=== PATIENT | female | born 1995 | race Two or more races ===

== ENCOUNTER 2016-09-12 14:52 | Emergency (ER) | payer SELFPAY ==
[2016-09-12 15:28] LABS: HCG URINE NEGATIVE (NEGATIVE)
[2016-09-12 15:39] LABS: APPEARANCE CLEAR (CLEAR); BILIRUBIN NEGATIVE (NEGATIVE); COLOR YELLOW (YELLOW); GLUCOSE NEGATIVE (NEGATIVE); KETONE NEGATIVE (NEGATIVE); LEUKOCYTE ESTERASE TRACE (NEGATIVE); NITRITE NEGATIVE (NEGATIVE); PROTEIN NEGATIVE (NEGATIVE); SPECIFIC GRAVITY 1.015 (1.005-1.020); UROBILINOGEN NORMAL (NORMAL)
[2016-09-12 15:40] LABS: BACTERIA FEW /hpf (NONE SEEN); EPITHELIAL CELLS 0-5 /hpf (0-5); RED CELLS - URINE 0-5 /hpf (0-5); WHITE CELLS - URINE 0-5 /hpf (0-5)
[2016-09-12 15:48] LABS: BASOPHILS 0.2 % (0.0-2.0); EOSINOPHILS 1.2 % (0-7); HEMATOCRIT 43.9 % (36.0-48.0); HEMOGLOBIN 14.3 g/dL (12-16); LYMPHOCYTES 32.4 % (15-50); MCH 29.1 pg (26.0-34.0); MCHC 32.6 g/dL (31.0-37.0); MCV 89.4 fL (80.0-100.0); MEAN PLATELET VOLUME 10.2 fL (7.4-10.4); MONOCYTES 12.6 % (2-11); NEUTROPHILS 53.6 % (40-80); PLATELET COUNT 233 10x3/uL (130-400); RBC 4.91 10x6/uL (4.00-5.40); RDW 13.2 % (11.5-14.5); WBC 8.1 10x3/uL (4.8-10.8)
[2016-09-12 16:03] LABS: ALBUMIN 3.9 g/dL (3.4-5.0); ALKALINE PHOSPHATASE 99 U/L (46-116); ALT (SGPT) 36 U/L (10-68); AMYLASE - SERUM 93 U/L (25-115); BILIRUBIN - TOTAL 0.26 mg/dL (0.2-1.3); CALC OSMOLALITY 277 mosm/kg (275-300); CALCIUM 8.9 mg/dL (8.5-10.1); CARBON DIOXIDE 27.9 mmol/L (21.0-32.0); CHLORIDE - SERUM 104 mmol/L (98-107); CREATININE - SERUM 0.8 mg/dL (0.6-1.3); GLUCOSE 93 mg/dL (74-106); LIPASE 86 U/L (73-393); POTASSIUM - SERUM 3.3 mmol/L (3.5-5.1); PROTEIN - SERUM 7.8 g/dL (6.4-8.2); SODIUM 141 mmol/L (136-145); UREA NITROGEN 5 mg/dL (7-18); eGFR NON AFRICAN AMERICAN > 90 mL/min (90-120)
== END 2016-09-12 16:25 | disposition home or self-care (01) ==
LOC: D.ER 14:52
PROVIDERS: Emergency Medicine
DX: N73.0 Acute parametritis and pelvic cellulitis (principal); F17.200 Nicotine dependence, unspecified, uncomplicated

== ENCOUNTER 2018-12-22 07:59 | Emergency (ER) | payer BC, MEDICAID ==
[~2018-12-22] VITALS: Ht 162.6 cm; Wt 71.8 kg
[2018-12-22 08:21] VITALS: Ht 162.6 cm; Wt 71.8 kg
[2018-12-22] MEDS ORDERED: MINIPRESS1 MG PO (08:25)
[2018-12-22 08:52] LABS: APPEARANCE CLEAR (CLEAR); BILIRUBIN NEGATIVE (NEGATIVE); COLOR YELLOW (YELLOW); GLUCOSE NEGATIVE (NEGATIVE); KETONE NEGATIVE (NEGATIVE); NITRITE NEGATIVE (NEGATIVE); PROTEIN NEGATIVE (NEGATIVE); SPECIFIC GRAVITY 1.005 (1.005-1.020); UROBILINOGEN NORMAL (NORMAL)
[2018-12-22 08:54] LABS: HCG URINE NEGATIVE (NEGATIVE)
[2018-12-22 09:04] LABS: BASOPHILS 0.1 % (0-2); EOSINOPHILS 2.6 % (0-7); HEMATOCRIT 40.9 % (36.0-48.0); HEMOGLOBIN 13.3 g/dL (12-16); IMMATURE GRANULOCYTES 0.1 % (0-5); LYMPHOCYTES 32.3 % (15-50); MCH 28.7 pg (26.0-34.0); MCHC 32.5 g/dL (31.0-37.0); MCV 88.3 fL (80.0-100.0); MONOCYTES 9.9 % (2-11); PLATELET COUNT 244 10x3/uL (130-400); RBC 4.63 10x6/uL (4.00-5.40); RDW 13.3 % (11.5-14.5)
[2018-12-22 09:29] LABS: ALBUMIN 3.4 g/dL (3.4-5.0); ALKALINE PHOSPHATASE 120 U/L (46-116); ALT (SGPT) 21 U/L (10-68); AMYLASE - SERUM 156 U/L (25-115); BILIRUBIN - TOTAL 0.23 mg/dL (0.2-1.3); CALC OSMOLALITY 280 mosm/kg (275-300); CALCIUM 8.9 mg/dL (8.5-10.1); CARBON DIOXIDE 27.2 mmol/L (21.0-32.0); CHLORIDE - SERUM 106 mmol/L (98-107); CREATININE - SERUM 0.7 mg/dL (0.6-1.3); GLUCOSE 75 mg/dL (74-106); LIPASE 130 U/L (73-393); POTASSIUM - SERUM 3.6 mmol/L (3.5-5.1); PROTEIN - SERUM 7.7 g/dL (6.4-8.2); SODIUM 142 mmol/L (136-145); UREA NITROGEN 10 mg/dL (7-18); eGFR NON AFRICAN AMERICAN > 90 mL/min (90-120)
[2018-12-22] MEDS ORDERED: ZOFRAN ODT4 MG/UDTAB PO (12:44)
[2018-12-22 13:15] VITALS: BP 110/64
== END 2018-12-22 12:54 | disposition home or self-care (01) ==
LOC: D.ER 07:59
PROVIDERS: Family Medicine
DX: R10.32 Left lower quadrant pain (principal)

== ENCOUNTER 2020-03-23 21:19 | Emergency (ER) | payer MEDICAID ==
[~2020-03-23] VITALS: Ht 162.6 cm; Wt 88.6 kg
[~2020-03-23 21:19] MED LIST: MINIPRESS1 MG PO; ZOFRAN ODT4 MG/UDTAB PO
[2020-03-23 21:40] VITALS: Ht 162.6 cm; Wt 88.6 kg
[2020-03-23] MEDS ORDERED: TOPAMAX50 MG PO (21:45)
[2020-03-23] MEDS ORDERED: CYMBALTA30 MG (21:45)
[2020-03-23] MEDS ORDERED: KLONOPIN1 MG PO (21:45)
[2020-03-24 00:15] VITALS: BP 128/79
== END 2020-03-24 00:15 | disposition home or self-care (01) ==
LOC: D.ER 21:19
DX: R51 Headache (principal); R56.9 Unspecified convulsions

== ENCOUNTER 2020-04-09 23:44 | Emergency (ER) | payer MEDICAID ==
[~2020-04-09] VITALS: Ht 162.6 cm; Wt 87.3 kg
[~2020-04-09 23:44] MED LIST changes: +CYMBALTA30 MG; +KLONOPIN1 MG PO; +TOPAMAX50 MG PO
[2020-04-09 23:51] VITALS: Ht 162.6 cm; Wt 87.3 kg
--- NOTE | 2020-04-10 01:23 | NUR ---
PATIENT IN ER DUE TO HAVING A SEIZURE. SHE IS NOT SUICIDIAL AND HER REASON FOR NOT BEING SUICIDIAL IS HER KIDS, SHE IS ALSO IN A GOOD RELATIONSHIP AND SEEMS HAPPY. SHE HOLDS EYE CONTACT REALLY WELL.
--- NOTE | 2020-04-10 01:31 | NUR ---
[id number] number given to patient for future reference.
[2020-04-10 02:06] VITALS: BP 120/78
== END 2020-04-10 01:33 | disposition home or self-care (01) ==
LOC: D.ER 23:44
DX: R56.9 Unspecified convulsions (principal); I10 Essential (primary) hypertension; Z72.0 Tobacco use

== ENCOUNTER 2020-11-19 06:22 | Emergency (ER) | payer MEDICAID ==
[~2020-11-19] VITALS: Ht 162.6 cm; Wt 80.9 kg
[~2020-11-19 06:22] MED LIST changes: +GABAPENTIN100 MG PO; +KEFLEX500 MG PO; +MACROBID100 MG PO; +MUCINEX DM ER1 EAC1 PO; +PREDNISONE20 MG PO; +PROAIR HFA8.5 G1 INH; +SINGULAIR 4 MG P4 MG PO; +STERAPRED DS 1010 MG PO; +ZPAK PO
[2020-11-19 06:29] VITALS: BP 119/78; Ht 162.6 cm; Wt 80.9 kg
[2020-11-19 07:20] LABS: BASOPHILS 0.1 % (0-2); EOSINOPHILS 2.2 % (0-7); HEMATOCRIT 38.7 % (36.0-48.0); HEMOGLOBIN 12.7 g/dL (12-16); IMMATURE GRANULOCYTES 0.1 % (0-5); LYMPHOCYTE ABS# 2.42 10x3/uL (1.18-3.74); LYMPHOCYTES 32.9 % (15-50); MCH 28.3 pg (26.0-34.0); MCHC 32.8 g/dL (31.0-37.0); MCV 86.4 fL (80.0-100.0); MEAN PLATELET VOLUME 9.9 fL (7.4-10.4); MONOCYTES 8.6 % (2-11); NEUTROPHIL ABS# 4.12 10x3/uL (1.56-6.13); NEUTROPHILS 56.1 % (40-80); PLATELET COUNT 282 10x3/uL (130-400); RBC 4.48 10x6/uL (4.00-5.40); WBC 7.4 10x3/uL (4.8-10.8)
[2020-11-19 07:29] LABS: CALC OSMOLALITY 264 mosm/kg (275-300); CALCIUM 8.9 mg/dL (8.5-10.1); CHLORIDE - SERUM 101 mmol/L (98-107); CREATININE - SERUM 0.6 mg/dL (0.6-1.3); GLUCOSE 87 mg/dL (74-106); POTASSIUM - SERUM 3.6 mmol/L (3.5-5.1); SODIUM 134 mmol/L (136-145); UREA NITROGEN 8 mg/dL (7-18); eGFR NON AFRICAN AMERICAN > 90 mL/min (90-120)
[2020-11-19 07:57] LABS: ALBUMIN 3.1 g/dL (3.4-5.0); ALKALINE PHOSPHATASE 108 U/L (30-120); ALT (SGPT) 17 U/L (10-68); BILIRUBIN - TOTAL 0.23 mg/dL (0.2-1.3); HCG - QUANTITATIVE (MATERNAL) 12414 mIU/mL
[2020-11-19 08:33] LABS: UDS - AMPHET NEGATIVE QUAL (NEGATIVE); UDS - BARB NEGATIVE QUAL (NEGATIVE); UDS - BENZO NEGATIVE QUAL (NEGATIVE); UDS - COCAINE NEGATIVE QUAL (NEGATIVE); UDS - OPIATE NEGATIVE QUAL (NEGATIVE); UDS - PCP NEGATIVE QUAL (NEGATIVE); UDS - THC POSITIVE QUAL (NEGATIVE)
[2020-11-19 08:35] LABS: BILIRUBIN NEGATIVE (NEGATIVE); KETONE NEGATIVE (NEGATIVE); NITRITE NEGATIVE (NEGATIVE); UROBILINOGEN NORMAL mg/dL (< 2)
[2020-11-19 08:36] LABS: AMORPHOUS SEDIMENT <1+ LPF (NONE SEEN); BACTERIA MODERATE HPF (NONE SEEN); SQUAMOUS EPITHELIAL 0-5 HPF (0-4); WHITE CELLS - URINE 0-5 HPF (0-4)
[2020-11-19] MEDS ORDERED: MACROBID100 MG PO (08:38)
[2020-11-19] MEDS ORDERED: CEPHALEXIN500 M1 PO (08:42)
== END 2020-11-19 08:45 | disposition home or self-care (01) ==
LOC: D.ER 06:22
PROVIDERS: Family Medicine
DX: O23.42 Unspecified infection of urinary tract in pregnancy, second trimester (principal); R56.9 Unspecified convulsions; O16.2 Unspecified maternal hypertension, second trimester; K21.9 Gastro-esophageal reflux disease without esophagitis; Z3A.15 15 weeks gestation of pregnancy